=== PATIENT | female | born 1985 | race Caucasian/White ===

== ENCOUNTER 2024-10-12 23:01 | Inpatient (IN) | payer OTHER, SELFPAY ==
--- NOTE | ~2024-10-12 | CT_ITS ---
CLINICAL HISTORY: L eye septal preseptal cellulitis, swelling, pus CT orbits with contrast Comparison: None provided Findings: No acute fractures. Globes and retro-orbital contents unremarkable. There is left orbital preseptal subcutaneous edema, possible cellulitis. Correlate clinically. Visualized intracranial contents are within normal limits. Paranasal sinuses and mastoid air cells clear. No foreign bodies. IMPRESSION: Left orbital preseptal subcutaneous edema. Correlate for cellulitis. This document has been electronically signed by: Markus Howard MD on 10/13/2024 07:44:56
[2024-10-12 23:39] VITALS: BP 151/73; PULSE 94; RESP 18; TEMP 36.9; O2SAT 97; BMI 51.4
[2024-10-12 23:51] LABS: Hematocrit 38.7 % (37.0-47.0); Hemoglobin 12.5 g/dl (12.0-16.0); Mean Corpuscular HGB Conc 32.3 g/dl (31.0-35.0); Mean Corpuscular Hemoglobin 24.7 pg (27.0-33.0); Mean Corpuscular Volume 76.3 fL (80.0-98.0); NRBC Abs Auto 0.000 X10*3/uL (0.0-0.012); NRBC Pct Auto 0.0 /100WBC (0.0-0.2); Platelet Count 420 X10*3/uL (160-400); Red Blood Count 5.07 X10*6/uL (4.20-5.50); White Blood Count 21.8 X10*3/uL (4.8-10.8)
[2024-10-13] VITALS (8 sets, daily range): BP systolic 132–177; BP diastolic 69–99; PULSE 83–93; RESP 14–18; TEMP 36.2–36.9; O2SAT 96–100; BMI 53.6
[2024-10-13 00:10] LABS: Alanine Aminotransferase 7 U/L (0-31); Albumin Level 4.2 g/dL (3.5-5.0); Alkaline Phosphatase 147 U/L (39-117); Anion Gap 14 (12-20); Aspartate Amino Transferase 15 U/L (5-31); Blood Urea Nitrogen 13 mg/dL (9-16); Calcium 9.5 mg/dL (8.4-10.2); Carbon Dioxide 25 mmol/L (22-29); Chloride 106 mmol/L (96-108); Creatinine Clr Calc Pharmacy 130.5; Estimated Glomerular Filt Rate > 60; Potassium 3.6 mmol/L (3.3-5.1); Sodium 141 mmol/L (135-145); Total Protein 7.5 g/dL (6.5-8.0)
--- NOTE | 2024-10-13 03:57 | ED_ITS ---
HPI - General Adult General Chief complaint: Skin/Abscess/Foreign Body Stated complaint: body & face rash Time Seen by Provider: 10/13/24 03:02 Source: patient Mode of arrival: ambulatory Limitations: no limitations History of Present Illness ED Provider: Dr. Ayana Herrera HPI narrative: Patient comes to the emergency room complaining of 2 days of rash under her breasts and axilla. Patient states that now over last 24 hours, she has developed an infection in her left eye. Patient states that it is swollen shut and can open it. Patient states that she continuously has skin lesions secondary to her medical history of Behcet's. Patient denies any chest pain or shortness of breath. Patient denies fever chills. Related Data Home Medications ?Medication ?Instructions ?Recorded ?Confirmed apremilast 30 mg tablet (Otezla) 30 mg PO BID 06/10/22 06/10/22 diazepam 5 mg tablet 5 mg PO BID PRN 06/10/2208/27 escitalopram oxalate 20 mg tablet 20 mg PO DAILY 06/1006/10/22 fluticasone propionate 50 1 spray intranasal BID 06/1006/10/22 mcg/actuation nasal spray,suspension gabapentin 300 mg capsule 300 mg PO QID 06/10/2206/10 hydroxyzine HCl 50 mg tablet 50 mg PO BID 06/10/2208/27 levothyroxine 50 mcg tablet 50 mcg PO DAILY 06/10/22 0 06/10/22 loratadine 10 mg tablet 10 mg PO DAILY 06/10/2208/27 medroxyprogesterone 150 mg/mL 150 mg IM [id number] 06/1006/10/22 intramuscular suspension rimegepant 75 mg disintegrating 75 mg PO ONCE PRN 08/2706/10/22 tablet (Nurtec ODT) sumatriptan succinate 100 mg tablet 100 mg PO Q2-4H CO N 06/10/22 06/10/22 tizanidine 4 mg tablet 4 mg PO BID PRN 06/10/2208/27 Allergies Allergy/AdvReac Type Severity Reaction Status Date / Time lactose (LACTOSE) Allergy Severe ANAPHYLAXIS Unverified 10/12/24 23:41 Penicillins (PENICILLINS) Allergy Severe ANAPYLAXIX Unverified 10/12/24 23:41 tramadol (TRAMADOL) Allergy Severe ANAPHYLAXIS Unverified 10/12/24 23:41 cephalexin (Keflex) Allergy Unknown Difficulty Verified 10/12/24 23:41 Breathing nystatin (NYSTATIN) Allergy Unknown DIFFICULTY Unverified 10/12/24 23:41 BREATHING penicillin G Allergy Unknown Difficulty Verified 10/12/24 23:41 Breathing sulfamethoxazole (From Allergy Unknown RASH Unverified 10/12/24 23:41 BACTRIM) DIFFICULTY BREATHING trimethoprim (From BACTRIM) Allergy Unknown RASH Unverified 10/12/24 23:41 DIFFICULTY BREATHING Review of Systems 2 Review of Systems: Constitutional : No Weight loss, No Fever, No Chills, No Night Sweats, No Fatigue, No Malaise ENT/Mouth : No Hearing loss, No Ear Pain, No Nasal Congestion, No Sinus Pain, No Hoarseness, No sore throat, No Rhinorrhea, No Swallowing Difficulty Eyes: Complaining of pain in the periorbital region, pus drainage from the eye, unable to open the eye due to pain Cardiovascular : No Chest Pain, No SOB, No Dyspnea on Exertion, No Orthopnea, No Edema, No Palpitations Respiratory : No Cough, No Sputum, No Wheezing, No Smoke Exposure, No Dyspnea Gastrointestinal : No Nausea, No Vomiting, No Diarrhea, No Constipation, No abdominal Pain, No Hematochezia, No Melena Genitourinary : no irregular bleeding, No Dysuria, No Urinary Frequency, No Hematuria, No Urinary Incontinence, No Urgency, No Flank Pain, No Urinary Flow Changes, No Hesitancy Musculoskeletal : No joint pain, No Myalgias, No Joint Swelling Skin : Complaining of a fungal infection under the breast armpits and abdominal folds Neuro : No Weakness, No Numbness, No Paresthesias, No Loss of Consciousness, No Dizziness, No Headache Psych : No Anxiety/Panic, No Depression, No SI/HI/AH/VH, No Social Issues, Heme/Lymph: No Bruising, No Bleeding,No Lymphadenopathy Endocrine : No Polyuria, No Polydipsia, No Temperature Intolerance [facility] Past Medical History Medical History Migraine Hypothyroidism Behcet's disease Hyperlipidemia Family History Family History (Updated 06/10/22 @ 10:21 by Skylar Billy, RN) Mother Diabetes Father CAD (coronary artery disease) Maternal Grandmother Diabetes Ovarian cancer Paternal Grandfather CAD (coronary artery disease) Maternal Aunt Ovarian cancer Social History Social History (Updated 06/10/22 @ 10:19 by Skylar Cervantes RN) Alcohol intake: never Patient Tobacco Use Status: Former Tobacco user Tobacco use type: Cigar Cigarette Packs Per Day: 0.25 e-Cigarette/Vaping Use: Never Used Advance Directives: No Advance Directives Information Provided: Yes Patient : No Physical Exam ED Exam Exam: Appearance: Alert. Oriented X3. No acute distress. Eyes: Pupils equal, round and reactive to light. Patient's left eye it had to be cleaned thoroughly because it was so stuck it was hard to open. Despite multiple times of cleaning the patient's left eye, keeps draining pus. Patient is able to move her eyes in all directions without significant pain in the actual eye. However, patient is tender to palpation around the eyelid and skin around the eye. Right eye pressure: 12.5 mmHg, left eye pressure, 13.5 mm Hg ENT: Pharynx normal. Neck: Normal inspection. Neck supple. No lymph nodes noted. No crepitus CVS: Normal heart rate and rhythm. Pulses normal. Normal S1 and S2 Respiratory: No respiratory distress. Breath sounds normal. No Wheezing. No rales Abdomen: Soft and nontender. No rigidity. No distention. Skin: Skin warm and dry. Normal skin color. Normal skin turgor. Extremities: No lower extremity edema. No Lacerations. No Rash Neuro: Oriented X 3. No motor deficit. No sensory deficit. Moving all extremities. No slurred speech. CN 2 through 12 grossly intact Psych: calm, cooperative, normal affect Vital Signs: Vital Signs - 24 hr 10/12/24 23:39 10/13/24 04:48 10/13/24 06:34 Temperature 98.5 F 98.2 F 98.3 F Pulse Rate 94 85 90 Respiratory Rate 18 16 18 Blood Pressure 151/73 H 150/79 H 169/99 H Pulse Oximetry 97 100 97 Oxygen Delivery Method Room Air Room Air Room Air BMI result Body Mass Index 51.4 Course Course Course Narrative: Patient is allergic to nystatin, patient was given clotrimazole Given the extent of the patient's eye infection and purulence, patient was given IV vancomycin. Patient is allergic to penicillins, cephalosporins. At this time, patient is not septic, so we will start with IV vanco. Patient also receiving IV fluids. We will obtain a CT scan of the orbits especially to visualize if there is orbital cellulitis. Medications Administered Discontinued Medications Generic Name Dose Route Start Last Admin Trade Name Freq PRN Reason Stop Dose Admin Clotrimazole 1 appl 10/13/24 03:43 10/13/24 06:07 Clotrimazole 1 % Cream 15 Gm Tube TOPICAL 10/13/24 03:44 Not Given ONCE ONE Protocol Erythromycin 1 cm 10/13/24 05:39 10/13/24 06:08 Erythromycin Base 0.5% Oph Oin 1 Gm Tube EYE-LEFT 10/13/24 05:40 1 cm ONCE ONE Administration Vancomycin HCl 2,000 mg in 500 mls @ 250 mls/hr 10/13/24 05:39 10/13/24 06:08 Vancomycin/Ns IV 10/13/24 07:38 250 mls/hr ONCE ONE Administration Sodium Chloride 1,000 mls @ 999 mls/hr 10/13/24 05:44 10/13/24 06:08 Ns IVCONT 10/13/24 06:44 999 mls/hr .Q1H1M ONE Administration Iohexol 85 ml 10/13/24 05:42 10/13/24 05:43 Iohexol 350 Mg/Ml 100 Ml Infus..Btl IV 10/13/24 05:43 85 ml ONCE ONE Administration Medical Decision Making Medical Decision Making [facility] Narrative: Patient's white blood cell count 21.8. According to the patient, this is her baseline. However, we do not have any previous labs for comparison. Patient's vitals stable, lactic acid normal. Sepsis is not suspected. Patient was given vancomycin, IV fluids. Patient has several allergies to multiple antibiotics. CT scan of the orbits show received in cellulitis. I discussed the patient with the medicine team, patient to be admitted Differential Diagnosis Differential Diagnoses: The differential diagnosis associated with the presentation includes (Septal cellulitis, preseptal cellulitis, uveitis, glaucoma) Admission/Observation Consideration of admission/observation: Escalation of care including admission/observation considered Consult Healthcare Provider Management of the patient was discussed with: Hospitalist Lab Data [facility] Lab Attestation statement: I reviewed the patient's lab results. 10/12/24 23:47 10/12/24 23:47 Labs: Lab Results 10/12/24 10/13/24 Range/Units 23:47 04:10 WBC 21.8 H (4.8-10.8) X10*3/uL RBC 5.07 (4.20-5.50) X10*6/uL Hgb 12.5 (12.0-16.0) g/dl Hct 38.7 (37.0-47.0) % MCV 76.3 L (80.0-98.0) fL MCH 24.7 L (27.0-33.0) pg MCHC 32.3 (31.0-35.0) g/dl RDW 14.2 (11.0-16.0) % Plt Count 420 H (160-400) X10*3/uL MPV 9.3 L (9.4-12.3) fL Absolute Nucleated RBC 0.000 (0.0-0.012) X10*3/uL Nucleated RBC % (auto) 0.0 (0.0-0.2) /100WBC Sodium 141 (135-145) mmol/L Potassium 3.6 (3.3-5.1) mmol/L Chloride 106 (96-108) mmol/L Carbon Dioxide 25 (22-29) mmol/L Anion Gap 14 (12-20) BUN 13 (9-16) mg/dL Creatinine 0.82 (0.5-1.4) mg/dL Estim Creat Clear Calc 130.5 Estimated GFR > 60 Random Glucose 116 H (60-115) mg/dL Lactic Acid 0.9 (0.5-2.0) mmol/L Calcium 9.5 (8.4-10.2) mg/dL Total Bilirubin 0.5 (0.0-1.0) mg/dL AST 15 (5-31) U/L ALT 7 (0-31) U/L Alkaline Phosphatase 147 H (39-117) U/L Total Protein 7.5 (6.5-8.0) g/dL Albumin 4.2 (3.5-5.0) g/dL Independent Interpretation I performed an independent interpretation of an: CT Scan Radiology Impression Discussion of test interpretation with radiology: I have reviewed the radiologist's reading. Radiologist Impression: No acute fractures. Globes and retro-orbital contents unremarkable. There is left orbital preseptal subcutaneous edema, possible cellulitis. Correlate clinically. Visualized intracranial contents are within normal limits. Paranasal sinuses and mastoid air cells clear. No foreign bodies. IMPRESSION: Left orbital preseptal subcutaneous edema. Correlate for cellulitis Critical Care Time Critical Care Time Critical Care Time: Yes Total Critical Care Time: 70 Attestation: I have personally provided critical care time. Time includes review of lab data, radiology results, discussion with consultants, and monitoring for potential decompensation. Intervention performed as documented. Discharge Plan Discharge Clinical Impression: Cellulitis, Candidiasis Patient Disposition: Admitted As Inpatient Print Language: Portuguese
--- NOTE | 2024-10-13 04:51 | PC.NURSE ---
Lactic acid and 2 sets of BC drawn and sent to lab for processing.
[2024-10-13] MEDS: iohexoL 350 MG/ML 100 ML INFUS..BTL 85 ML IV (05:43)
[2024-10-13] MEDS: Erythromycin Base 0.5% Oph Oin 1 GM TUBE 1 CM EYE-LEFT ×5 (06:08→19:53)
[2024-10-13] MEDS: vancomycin/NS 2,000 MG/500 ML PLAST..BAG 250 MG IV (06:08)
--- NOTE | 2024-10-13 08:57 | PM.IMHP ---
History of Present Illness Date of Service: 10/13/24 Attending physician on admission: Talia Ling Chief Complaint: left eye drainage This is a 38-year-old female with history Behcet's disease who presents to the emergency department with left eye discomfort. She reports redness and discomfort in her left eye over past 2 days with increasing purulent drainage. She also reports skin rash under her breasts and in her armpits although she said the this is almost always present. She has a history of Behcet disease reports that she regularly has skin lesions for this reason. In the emergency department she was noted to have large amount of purulent drainage and crusting in her left eye. Eye pressure normal in both eyes. She is able to move her eye in all directions and denies pain in her eye at this time, just reports frustration at the drainage and crusting that is making it difficult to keep her eye open. Lab work significant for leukocytosis of 21,000. Patient underwent orbital CT scan with IV contrast which showed retro orbital contents and globes unremarkable, showed left orbital preseptal subcutaneous edema, correlate for cellulitis. Patient received a dose of IV vancomycin and admission was requested for further management of preseptal cellulitis. Review of Systems Review of Systems: Yes all other systems are reviewed and are negative Constitutional: Constitutional: Denies chills and Denies fever(s) Cardiovascular: Cardiovascular: Denies chest pain and Denies palpitations Gastrointestinal: Gastrointestinal: Denies abdominal pain, Denies diarrhea, Denies nausea and Denies vomiting Endocrine: Endocrine: Denies palpitations [facility] Medical History Migraine Hypothyroidism Behcet's disease Hyperlipidemia Family History Mother Diabetes Father CAD (coronary artery disease) Maternal Grandmother Diabetes Ovarian cancer Paternal Grandfather CAD (coronary artery disease) Maternal Aunt Ovarian cancer Social History Alcohol intake: never Patient Tobacco Use Status: Former Tobacco user Tobacco use type: Cigar Cigarette Packs Per Day: 0.25 e-Cigarette/Vaping Use: Never Used Advance Directives: No Advance Directives Information Provided: Yes Patient : No Meds Allergies Allergy/AdvReac Type Severity Reaction Status Date / Time lactose (LACTOSE) Allergy Severe ANAPHYLAXIS Unverified 10/12/24 23:41 Penicillins (PENICILLINS) Allergy Severe ANAPYLAXIX Unverified 10/12/24 23:41 tramadol (TRAMADOL) Allergy Severe ANAPHYLAXIS Unverified 10/12/24 23:41 cephalexin (Keflex) Allergy Unknown Difficulty Verified 10/12/24 23:41 Breathing nystatin (NYSTATIN) Allergy Unknown DIFFICULTY Unverified 10/12/24 23:41 BREATHING penicillin G Allergy Unknown Difficulty Verified 10/12/24 23:41 Breathing sulfamethoxazole (From Allergy Unknown RASH Unverified 10/12/24 23:41 BACTRIM) DIFFICULTY BREATHING trimethoprim (From BACTRIM) Allergy Unknown RASH Unverified 10/12/24 23:41 DIFFICULTY BREATHING Active Medications: Current Medications Acetaminophen (Acetaminophen 325 Mg Tablet) 650 mg PO Q6H PRN PRN Reason: Pain, Mild 1-3,fever,headache Calcium Carbonate (Calcium Carbonate 750 Mg Tab.Chew) 750 mg PO Q4H PRN PRN Reason: Heartburn Enoxaparin Sodium (Enoxaparin Sodium 40 Mg/0.4 Ml Syringe) 40 mg SUBCUT Q24H [facility] Erythromycin (Erythromycin Base 0.5% Oph Oin 1 Gm Tube) 1 cm EYE-LEFT QID [facility] Levofloxacin (Levaquin) 750 mg in 150 mls @ 100 mls/hr IV Q24H [facility] Magnesium Hydroxide (Milk Of Magnesia 30 Ml Oral.Susp) 30 ml PO DAILY PRN PRN Reason: Constipation Melatonin (Melatonin 3 Mg Tablet) 6 mg PO BEDTIME PRN PRN Reason: Insomnia Pharmacy Consult (Consult Rx Vancomycin Dosing) 1 each MISCELLANE DAILY PRN PRN Reason: Consult order Sodium Chloride (0.9 % Sodium Chloride Flush 3 Ml Syringe) 3 ml IVFLUSH QSHIFT [facility] Home Medications ?Medication ?Instructions ?Recorded ?Confirmed ?Last Taken ?Type escitalopram oxalate 20 mg tablet 20 mg PO BEDTIME 06/10/22 10/13/24 Unknown History gabapentin 300 mg capsule 300 mg PO QID 06/10/22 10/13/24 Unknown History hydroxyzine HCl 50 mg tablet 50 mg PO BID PRN Anxiety 06/10/22 10/13/24 Unknown History loratadine 10 mg tablet 10 mg PO DAILY PRN ALLERGIES 06/10/22 10/13/24 Unknown History tizanidine 4 mg tablet 4 mg PO BID PRN Muscle Spasm 06/10/22 10/13/24 Unknown History atorvastatin 20 mg tablet 20 mg PO DAILY 10/13/24 10/13/24 Unknown History duloxetine 60 mg capsule,delayed 60 mg PO DAILY 10/13/24 10/13/24 Unknown History release esomeprazole magnesium 20 mg 20 mg PO DAILY PRN Acid Reflux 10/13/24 10/13/24 Unknown History capsule,delayed release indomethacin 25 mg capsule 50 mg PO BID PRN Pain (Scale Score 10/13/24 10/13/24 Unknown History 4-6) Physical Exam Vital Signs and Narrative: Vital Signs: Last Vital Signs Temp 98.3 F 10/13/24 06:34 Pulse 90 10/13/24 06:34 Resp 18 10/13/24 06:34 BP 169/99 H 10/13/24 06:34 Pulse Ox 97 10/13/24 06:34 O2 Del Method Room Air 10/13/24 06:34 BMI result Body Mass Index 51.4 Const: General: cooperative, alert and awake Nutritional Appearance: obese Orientation/consciousness: patient oriented x3 Eyes: Other: EOM: EOMs intact bilaterally Resp: Effort & Inspection: normal respiratory effort, able to speak in complete sentences, no respiratory distress and no use of accessory muscles GI: Inspection: No distended Palpation (GI): Soft to palpation Skin: Other: fungal rash b/l axilla and under b/l breasts Neuro: General: patient oriented x3 Results Labs 10/12/24 23:47 10/12/24 23:47 Labs: Laboratory Results - last 24 hr 10/12/24 10/13/24 23:47 04:10 MCV 76.3 L MCH 24.7 L MCHC 32.3 RDW 14.2 Plt Count 420 H MPV 9.3 L Absolute Nucleated RBC 0.000 Nucleated RBC % (auto) 0.0 Anion Gap 14 Estim Creat Clear Calc 130.5 Estimated GFR > 60 Random Glucose 116 H Lactic Acid 0.9 Calcium 9.5 Total Bilirubin 0.5 AST 15 ALT 7 Alkaline Phosphatase 147 H Total Protein 7.5 Albumin 4.2 Assessment and Plan (1) Candidiasis: Status: Acute (2) Preseptal cellulitis of left eye: Status: Acute Plan This is a 38 year old female with history of Behcet's disease, hypothyroidism, chronic back pain, migraines who presents to the emergency department with left eye purulent drainage and redness found to have preseptal cellulitis Preseptal cellulitis and conjunctivitis of left eye IV levofloxacin, vancomycin Erythromycin ointment blood cultures pending Fungal rash/intertrigo Documented allergy to the nystatin, will use topical clotrimazole Consider oral fluconazole if no improvement Elevated blood pressure Blood pressure elevated in emergency department No history of hypertension Monitor blood pressure closely. May need to be started on antihypertensive leukocytosis scanned in notes indication h/o chronic leukocytosis no recent baseline for comparison follow CBC Mood Continue baseline medications HLD continue statin Morbid obesity BMI 51.4 Weight loss encouraged DVT prophylaxis - early ambulation, mechanical devices Likely to require 2 midnight stay in the hospital for management of preseptal cellulitis requiring IV antibiotics Quality Stroke Does the patient have a stroke diagnosis?: No VTE Prior VTE?: No VTE Risk Level:: Medical - moderate - high VTE Device Contraindication: N/A - Device Ordered VTE Drug Contraindication: Treatment Not Indicated
--- NOTE | 2024-10-13 09:18 | PHA.MEDREC ---
Pharmacy Consult ? Medication Reconciliation Pharmacy has completed the medication reconciliation.Med rec complete, spoke with patient and compared pharmacy claim history. Patient is stating she takes some of her meds differently than prescribed directions. For example she states gabapentin is taken all together at night, duloxetine is only once daily, esomeprazole is prn
--- NOTE | 2024-10-13 11:52 | PC.NURSE ---
report called to THERESA Bowens in overflow
--- NOTE | 2024-10-13 13:09 | PC.NURSE ---
medication Pt states that she takes her gabapentin in 1 dose- 1200 mg nightly and does not take it every 4 hrs as ordered- pt asking for it to be changed. also asking for additional anxiety medication states the atarax isnt for anxiety its for her baseline rash/itchiness. Danyell Manrique has been notified via tiger text of both requests.
[2024-10-13] MEDS: 0.9 % Sodium Chloride Flush 3 ML SYRINGE IVFLUSH ×2 (14:46→19:52)
--- NOTE | 2024-10-13 17:53 | HO.SKINPHOTO ---
under left breast
--- NOTE | 2024-10-13 17:55 | HO.SKINPHOTO ---
abdominal folds, also pt. reports the same for the groin and perineal area.
[2024-10-14 03:12] VITALS: BP 166/74; PULSE 92; RESP 18; TEMP 36.4; O2SAT 97
[2024-10-14 07:27] VITALS: BP 145/94; PULSE 73; RESP 14; TEMP 36.8; O2SAT 96
--- NOTE | 2024-10-14 08:27 | HO.PM.IMPN ---
Subjective Subjective Date of Service: 10/14/24 Interval History: facial swelling/redness improving no fever Review of Systems Review of Systems: Yes all other systems are reviewed and are negative Physical Exam Vital Signs: Vital Signs: Last Vital Signs Temp 98.2 F 10/14/24 07:27 Pulse 73 10/14/24 07:27 Resp 14 10/14/24 07:27 BP 145/94 H 10/14/24 07:27 Pulse Ox 96 10/14/24 07:27 O2 Del Method Room Air 10/14/24 07:27 O2 Flow Rate 99 10/14/24 03:12 BMI result Body Mass Index 53.6 Gen: in no acute distress HEENT: L sclera red, moist mucus membranes, periorbital erythema and edema L eye but EOMI intact Neck: supple Lungs: clear to auscultation bilaterally Heart: regular rate and rhythm, no murmurs Abd: soft, non-tender, non-distended Ext: no edema Skin: warm/well-perfused Neuro: alert and oriented x3, no focal findings Psych: appropriate affect Objective Data Active Medications Acetaminophen (Acetaminophen 325 Mg Tablet) 650 mg PO Q6H PRN PRN Reason: Pain, Mild 1-3,fever,headache Atorvastatin Calcium (Atorvastatin Calcium 20 Mg Tablet) 20 mg PO DAILY [facility] Calcium Carbonate (Calcium Carbonate 750 Mg Tab.Chew) 750 mg PO Q4H PRN PRN Reason: Heartburn Clotrimazole (Clotrimazole 1 % Cream 15 Gm Tube) 1 appl TOPICAL BID [facility]; Protocol Last Admin: 10/13/24 20:05 Dose: Not Given Documented By: LYUDMILA Non-Admin Reason: Med Not Available Duloxetine HCl (Duloxetine Hcl 60 Mg Capsule.Dr) 60 mg PO DAILY [facility] Erythromycin (Erythromycin Base 0.5% Oph Oin 1 Gm Tube) 1 cm EYE-LEFT QID [facility] Last Admin: 10/13/24 19:53 Dose: 1 cm Documented By: LYUDMILA Escitalopram Oxalate (Escitalopram Oxalate 20 Mg Tablet) 20 mg PO BEDTIME [facility] Last Admin: 10/13/24 19:53 Dose: 20 mg Documented By: LYUDMILA Gabapentin (Gabapentin 300 Mg Capsule) 300 mg PO QID [facility] Last Admin: 10/13/24 19:53 Dose: 300 mg Documented By: LYUDMILA Hydroxyzine HCl (Hydroxyzine Hcl 50 Mg Tablet) 50 mg PO BID PRN PRN Reason: Anxiety Last Admin: 10/13/24 17:36 Dose: 50 mg Documented By: JOSE Levofloxacin (Levaquin) 750 mg in 150 mls @ 100 mls/hr IV Q24H [facility] Last Infusion: 10/13/24 11:22 Dose: Infused Documented By: JOVITA Vancomycin HCl 1,250 mg/ (Sodium Chloride) 250 mls @ 166.667 mls/hr IV Q12H [facility] Last Infusion: 10/14/24 07:34 Dose: 0 mls/hr Documented By: JOSE Magnesium Hydroxide (Milk Of Magnesia 30 Ml Oral.Susp) 30 ml PO DAILY PRN PRN Reason: Constipation Melatonin (Melatonin 3 Mg Tablet) 6 mg PO BEDTIME PRN PRN Reason: Insomnia Last Admin: 10/13/24 19:54 Dose: 6 mg Documented By: LYUDMILA Pharmacy Consult (Consult Rx Vancomycin Dosing) 1 each MISCELLANE DAILY PRN PRN Reason: Consult order Sodium Chloride (0.9 % Sodium Chloride Flush 3 Ml Syringe) 3 ml IVFLUSH QSHIFT [facility] Last Admin: 10/14/24 07:34 Dose: Not Given Documented By: JOSE Non-Admin Reason: No Access Tizanidine HCl (Tizanidine Hcl 4 Mg Tablet) 4 mg PO BID PRN PRN Reason: Muscle Spasm Labs 10/12/24 23:47 10/12/24 23:47 Microbiology Microbiology Results: Microbiology 10/13/24 04:10 Blood Culture - Preliminary Blood - Venous No growth after 24 hours. 10/13/24 04:10 Blood Culture - Preliminary Blood - Venous No growth after 24 hours. Assessment and Plan (1) Preseptal cellulitis of left eye: Status: Acute (2) Candidiasis: Status: Acute Plan d2, 38yo F with Behcet's disease, hypothyroidism, chronic back pain, migraines presenting with L eye purulent drainage + redness, admitted for preseptal cellulitis preseptal cellulitis - follow BCx + WBC count, continue levofloxacin + vancomycin + erythromycin ointment 10/13- intertrigo - clotrimazole HLD - statin morbid obesity - diet/exercise counseling mood disorder - escitalopram, hydroxyzine chronic pain - duloxetine, gabapentin, tizanidine VTE ppx - SCDs dispo - eventual home In my clinical judgment, the patient requires continued inpatient hospitalization for the following reasons: IV ABX Total time managing care of this patient today: 35 minutes. Quality Stroke Does the patient have a stroke diagnosis?: No VTE Prior VTE?: No VTE Risk Level:: Medical - moderate - high VTE Device Contraindication: N/A - Device Ordered VTE Drug Contraindication: Treatment Not Indicated
[2024-10-14] MEDS: Erythromycin Base 0.5% Oph Oin 1 GM TUBE 1 CM EYE-LEFT ×4 (08:58→21:28)
--- NOTE | 2024-10-14 09:57 | MHC.CM.PN ---
PT LIVES WITH AUNT PT IS INDEPENDNT PT HAS A RIDE HOME MARINA BARNES[facility] PT STATES HER AND HER AUNT DO NOT GET ALONG ?CARE TEAM DC PLAN HOME?OUPT COUNSELING
[2024-10-14 10:33] LABS: Hematocrit 38.7 % (37.0-47.0); Hemoglobin 12.3 g/dl (12.0-16.0); Mean Corpuscular HGB Conc 31.8 g/dl (31.0-35.0); Mean Corpuscular Hemoglobin 24.4 pg (27.0-33.0); Mean Corpuscular Volume 76.6 fL (80.0-98.0); NRBC Abs Auto 0.000 X10*3/uL (0.0-0.012); NRBC Pct Auto 0.0 /100WBC (0.0-0.2); Platelet Count 399 X10*3/uL (160-400); Red Blood Count 5.05 X10*6/uL (4.20-5.50); White Blood Count 16.1 X10*3/uL (4.8-10.8)
[2024-10-14 10:50] LABS: Creatinine Clr Calc Pharmacy 142.6; Estimated Glomerular Filt Rate > 60
[2024-10-14] MEDS: Clotrimazole 1 % Cream 15 GM TUBE 1 APPL TOPICAL ×2 (12:39→21:29)
[2024-10-14 15:19] VITALS: BP 145/82; PULSE 89; RESP 14; TEMP 36.6; O2SAT 96
[2024-10-14] MEDS: 0.9 % Sodium Chloride Flush 3 ML SYRINGE IVFLUSH ×2 (15:21→21:29)
[2024-10-14 19:41] VITALS: BP 122/72; PULSE 83; RESP 18; TEMP 36.3; O2SAT 96
[2024-10-15 03:28] VITALS: BP 125/73; PULSE 80; RESP 18; TEMP 36.1; O2SAT 98
[2024-10-15 06:38] LABS: Creatinine Clr Calc Pharmacy 142.6; Estimated Glomerular Filt Rate > 60
--- NOTE | 2024-10-15 07:12 | P.PNIM_ITS ---
Subjective Subjective Date of Service: 10/15/24 Interval History: redness/swelling slowly improving, no visual deficit Review of Systems Review of Systems: Yes all other systems are reviewed and are negative Physical Exam 2 Vital Signs: Vital Signs: Last Vital Signs Temp 97.0 F 10/15/24 03:28 Pulse 80 10/15/24 03:28 Resp 18 10/15/24 03:28 BP 125/73 10/15/24 03:28 Pulse Ox 98 10/15/24 03:28 O2 Del Method Room Air 10/15/24 03:28 O2 Flow Rate 99 10/14/24 03:12 BMI result Body Mass Index 53.6 Gen: in no acute distress HEENT: L sclera red, moist mucus membranes, periorbital erythema and edema L eye but EOMI intact Neck: supple Lungs: clear to auscultation bilaterally Heart: regular rate and rhythm, no murmurs Abd: soft, non-tender, non-distended Ext: no edema Skin: warm/well-perfused Neuro: alert and oriented x3, no focal findings Psych: appropriate affect Objective Data Active Medications Acetaminophen (Acetaminophen 325 Mg Tablet) 650 mg PO Q6H PRN PRN Reason: Pain, Mild 1-3,fever,headache Albuterol/Ipratropium (Albuterol/Iprat 2.5/0.5mg 3 Ml Ampul.Neb) 3 ml INHALE RQ4H WHILE AWAKE PRN PRN Reason: shortness of breath/wheeze Atorvastatin Calcium (Atorvastatin Calcium 20 Mg Tablet) 20 mg PO DAILY [facility] Last Admin: 10/14/24 08:58 Dose: 20 mg Documented By: JOSE Calcium Carbonate (Calcium Carbonate 750 Mg Tab.Chew) 750 mg PO Q4H PRN PRN Reason: Heartburn Clotrimazole (Clotrimazole 1 % Cream 15 Gm Tube) 1 appl TOPICAL BID [facility]; Protocol Last Admin: 10/14/24 21:29 Dose: 1 appl Documented By: WAYNE Duloxetine HCl (Duloxetine Hcl 60 Mg Capsule.Dr) 60 mg PO DAILY [facility] Last Admin: 10/14/24 08:58 Dose: 60 mg Documented By: JOSE Erythromycin (Erythromycin Base 0.5% Oph Oin 1 Gm Tube) 1 cm EYE-LEFT QID [facility] Last Admin: 10/14/24 21:28 Dose: 1 cm Documented By: WAYNE Escitalopram Oxalate (Escitalopram Oxalate 20 Mg Tablet) 20 mg PO BEDTIME [facility] Last Admin: 10/14/24 21:28 Dose: 20 mg Documented By: WAYNE Gabapentin (Gabapentin 300 Mg Capsule) 300 mg PO QID [facility] Last Admin: 10/14/24 21:28 Dose: 300 mg Documented By: WAYNE Hydroxyzine HCl (Hydroxyzine Hcl 50 Mg Tablet) 50 mg PO BID PRN PRN Reason: Anxiety Last Admin: 10/14/24 12:39 Dose: 50 mg Documented By: JOSE Levofloxacin (Levaquin) 750 mg in 150 mls @ 100 mls/hr IV Q24H [facility] Last Infusion: 10/14/24 11:32 Dose: Infused Documented By: JOSE Vancomycin HCl 1,250 mg/ (Sodium Chloride) 250 mls @ 166.667 mls/hr IV Q12H [facility] Last Admin: 10/15/24 05:48 Dose: 166.67 mls/hr Documented By: WAYNE Magnesium Hydroxide (Milk Of Magnesia 30 Ml Oral.Susp) 30 ml PO DAILY PRN PRN Reason: Constipation Melatonin (Melatonin 3 Mg Tablet) 6 mg PO BEDTIME PRN PRN Reason: Insomnia Last Admin: 10/14/24 21:45 Dose: 6 mg Documented By: WAYNE Pharmacy Consult (Consult Rx Vancomycin Dosing) 1 each MISCELLANE DAILY PRN PRN Reason: Consult order Sodium Chloride (0.9 % Sodium Chloride Flush 3 Ml Syringe) 3 ml IVFLUSH QSHIFT [facility] Last Admin: 10/14/24 21:29 Dose: 3 ml Documented By: WAYNE Tizanidine HCl (Tizanidine Hcl 4 Mg Tablet) 4 mg PO BID PRN PRN Reason: Muscle Spasm Labs 10/14/24 10:27 10/15/24 05:38 Labs: Laboratory Results - last 24 hr 10/14/24 10/14/24 10/14/24 09:53 10:27 16:13 MCV 76.6 L MCH 24.4 L MCHC 31.8 RDW 14.1 Plt Count 399 MPV 9.6 Absolute Nucleated RBC 0.000 Nucleated RBC % (auto) 0.0 Hold Purple Top Estim Creat Clear Calc 142.6 Estimated GFR > 60 C-Reactive Protein 4.59 H Random Vancomycin 14.3 L 10/15/24 05:38 MCV MCH MCHC RDW Plt Count MPV Absolute Nucleated RBC Nucleated RBC % (auto) Hold Purple Top SEE NOTE Estim Creat Clear Calc 142.6 Estimated GFR > 60 C-Reactive Protein Random Vancomycin Microbiology Microbiology Results: Microbiology 10/13/24 04:10 Blood Culture - Preliminary Blood - Venous No growth after 48 hours. 10/13/24 04:10 Blood Culture - Preliminary Blood - Venous No growth after 48 hours. Assessment and Plan (1) Preseptal cellulitis of left eye: Status: Acute (2) Candidiasis: Status: Acute Plan d3, 38yo F with Behcet's disease, hypothyroidism, chronic back pain, migraines presenting with L eye purulent drainage + redness, admitted for preseptal cellulitis preseptal cellulitis - follow BCx + WBC count, continue levofloxacin + vancomycin + erythromycin ointment 10/13-, ID consult re outpt ABX intertrigo - clotrimazole HLD - statin morbid obesity - diet/exercise counseling mood disorder - escitalopram, hydroxyzine chronic pain - duloxetine, gabapentin, tizanidine VTE ppx - SCDs dispo - eventual home In my clinical judgment, the patient requires continued inpatient hospitalization for the following reasons: IV ABX Total time managing care of this patient today: 35 minutes. Quality Stroke Does the patient have a stroke diagnosis?: No VTE Prior VTE?: No VTE Risk Level:: Medical - moderate - high VTE Device Contraindication: N/A - Device Ordered VTE Drug Contraindication: Treatment Not Indicated
[2024-10-15 07:29] VITALS: BP 124/62; PULSE 87; RESP 18; TEMP 36.2; O2SAT 95
[2024-10-15] MEDS: Erythromycin Base 0.5% Oph Oin 1 GM TUBE 1 CM EYE-LEFT ×2 (08:37→13:23)
[2024-10-15] MEDS: Clotrimazole 1 % Cream 15 GM TUBE 1 APPL TOPICAL (08:39)
--- NOTE | 2024-10-15 12:10 | MHC.CM.PN ---
Addendum entered by Sheri Jiménez RN 10/15/24 14:02: Patient medically cleared for dc home self care via private transport. Original Note: Per MD rounds patient not medically cleared for dc, awaiting ID consult, anticipate home self care tomorrow. CM will continue to follow.
[2024-10-15] MEDS: Acyclovir 5 % Oint 15 GM TUBE TOPICAL (13:23)
--- NOTE | 2024-10-15 13:48 | P.DS_ITS ---
DS: Providers Provider Date of Service: 10/15/24 Date of admission: 10/13/24 08:32 Date of discharge: 10/15/24 Primary care physician: Unknown Physician Consults: 10/13/24 17:47 Consult to Wound Care Routine Reason for consultation: scattered skin excoriation. Has provider been notified: Yes 10/15/24 07:11 Consult to Infectious Diseases Routine Consulting Provider: [facility] Reason for consultation: prespetal cellulisit DS: Diagnosis Discharge Diagnosis (1) Preseptal cellulitis of left eye: Status: Acute (2) Candidiasis: Status: Acute (3) Cold sore: Status: Acute (4) Behcet's disease: Status: Acute (5) Conjunctivitis: Status: Acute (6) Morbid obesity: Status: Acute DS: Summary Hospital Course Hospital Course: From the history and physical by the admitting hospitalist, RG Manrique, 10/13/24: This is a 38-year-old female with history Behcet's disease who presents to the emergency department with left eye discomfort. She reports redness and discomfort in her left eye over past 2 days with increasing purulent drainage. She also reports skin rash under her breasts and in her armpits although she said the this is almost always present. She has a history of Behcet disease reports that she regularly has skin lesions for this reason. In the emergency department she was noted to have large amount of purulent drai nage and crusting in her left eye. Eye pressure normal in both eyes. She is able to move her eye in all directions and denies pain in her eye at this time, just reports frustration at the drainage and crusting that is making it difficult to keep her eye open. Lab work significant for leukocytosis of 21,000. Patient underwent orbital CT scan with IV contrast which showed retro orbital contents and globes unremarkable, showed left orbital preseptal subcutaneous edema, correlate for cellulitis. Patient received a dose of IV vancomycin and admission was requested for further management of preseptal cellulitis. 38yo F with Behcet's disease, hypothyroidism, chronic back pain, migraines presenting with L eye purulent drainage + redness, admitted to the telemetry unit for preseptal cellulitis. She was treated with IV vancomycin and levofloxacin with symptomatic improvement. Leukocytosis also improve.d She was also given erythromycin ointment for component of conjuncitivits, clotrimazole for candidal intertrigo, and topical acyclovir for cold sore. Infectious Disease was consulted and recommended 5 days of clindamycin. She was discharged on clindamycin, erythromycin ointment, topical clotrimazole, and topical acyclovir. She should establish primary care and rheumatology care as soon as possible. Time Attestation Discharge Coordination Time (in mins): 35 Quality: Safe Use of Opioids Does Pt have an Active Cancer Diagnosis on the Problem List?: No Quality: Stroke Does the patient have a stroke diagnosis?: No Physical Exam Vital Signs: Vital Signs: Last Vital Signs Temp 97.2 F 10/15/24 07:29 Pulse 87 10/15/24 07:29 Resp 18 10/15/24 07:29 BP 124/62 10/15/24 07:29 Pulse Ox 95 10/15/24 07:29 O2 Del Method Room Air 10/15/24 07:29 O2 Flow Rate 99 10/14/24 03:12 BMI result Body Mass Index 53.6 Gen: in no acute distress HEENT: L sclera mildly injected but improved, moist mucus membranes, periorbital erythema and edema L eye improved from admission, EOMI intact, cold sore to L corner of lip Neck: supple Lungs: clear to auscultation bilaterally Heart: regular rate and rhythm, no murmurs Abd: soft, non-tender, non-distended Ext: no edema Skin: warm/well-perfused, erythema of skin folds in axila Neuro: alert and oriented x3, no focal findings Psych: appropriate affect DS: Data Data Completed and Pending Completed studies during hospitalization [Text1]: Laboratory Results WBC 16.1 X10*3/uL (4.8-10.8) H 10/14/24 10:27 RBC 5.05 X10*6/uL (4.20-5.50) 10/14/24 10:27 Hgb 12.3 g/dl (12.0-16.0) 10/14/24 10:27 Hct 38.7 % (37.0-47.0) 10/14/24 10: MCV 76.6 fL (80.0-98.0) L 10/14/24 10: MCH 24.4 pg (27.0-33.0) L 10/14/24 10:27 MCHC 31.8 g/dl (31.0-35.0) 10/14/24 10: RDW 14.1 % (11.0-16.0) 10/14/24 10:27 Plt Count 399 X10*3/uL (160-400) 10/14/24 10:27 MPV 9.6 fL (9.4-12.3) 10/14/24 10:27 Absolute Nucleated RBC 0.000 X10*3/uL (0.0-0.012) 10/14/24 10: Nucleated RBC % (auto) 0.0 /100WBC (0.0-0.2) 10/14/24 10:27 Hold Purple Top SEE NOTE 10/15/24 05:38 Sodium 141 mmol/L (135-145) 10/12/24 23:47 Potassium 3.6 mmol/L (3.3-5.1) 10/12/24 23:47 Chloride 106 mmol/L (96-108) 10/12/24 23:47 Carbon Dioxide 25 mmol/L (22-29) 10/12/24 23:47 Anion Gap 14 (12-20) 10/12/24 23:47 BUN 13 mg/dL (9-16) 10/12/24 23:47 Creatinine 0.77 mg/dL (0.5-1.4) 10/15/24 05:38 Estim Creat Clear Calc 142.6 10/15/24 05:38 Estimated GFR > 60 10/15/24 05:38 Random Glucose 116 mg/dL (60-115) H 10/12/24 23:47 Lactic Acid 0.9 mmol/L (0.5-2.0) 10/13/24 04:10 Calcium 9.5 mg/dL (8.4-10.2) 10/12/24 23:47 Total Bilirubin 0.5 mg/dL (0.0-1.0) 10/12/24 23:47 AST 15 U/L (5-31) 10/12/24 23:47 ALT 7 U/L (0-31) 10/12/24 23:47 Alkaline Phosphatase 147 U/L (39-117) H 10/12/24 23:47 C-Reactive Protein 4.59 mg/dL (< or = 0.50) H 10/14/24 09:53 Total Protein 7.5 g/dL (6.5-8.0) 10/12/24 23:47 Albumin 4.2 g/dL (3.5-5.0) 10/12/24 23:47 Random Vancomycin 14.3 mcg/mL (15-20) L 10/14/24 16:13 Discharge Plan Discharge Anticipated Discharge Date/Time: 10/15/24 13:41 Patient Disposition: Home, Self-Care Discharge Diagnosis: preseptal cellulitis of L eye cold sore candidiasis Referrals: [facility] [Provider Group, Internal Medicine] - 1 Week [facility] [Provider Group, Rheumatology] - 2 Weeks [facility] [Primary Care Provider, Medical] - 1 Week Discharge Medications: New erythromycin 5 mg/gram (0.5 %) Ointment 1 cm ophthalmic-Left QID Qty: 3.5 0RF acyclovir 5 % Ointment 1 appl topical 5XD Qty: 5 0RF clotrimazole 1 % Cream 1 appl topical BID Qty: 60 0RF Protocol: Apply to: Apply to: affected areas clindamycin HCl [Cleocin HCl] 300 mg capsule 300 mg PO QID Qty: 20 0RF Continued indomethacin 25 mg Capsule 50 mg PO BID PRN (Reason: Pain (Scale Score 4-6)) Rx Instructions: administer with food or milk duloxetine 60 mg Capsule,Delayed Release(Dr/Ec) 60 mg PO DAILY esomeprazole magnesium 20 mg Capsule,Delayed Release(Dr/Ec) 20 mg PO DAILY PRN (Reason: Acid Reflux) atorvastatin 20 mg Tablet 20 mg PO DAILY escitalopram oxalate 20 mg tablet 20 mg PO BEDTIME gabapentin 300 mg capsule 300 mg PO QID hydroxyzine HCl 50 mg tablet 50 mg PO BID PRN (Reason: Anxiety) loratadine 10 mg tablet 10 mg PO DAILY PRN (Reason: ALLERGIES) tizanidine 4 mg tablet 4 mg PO BID PRN (Reason: Muscle Spasm) Discharge Orders: Discharge Order (Routine); Ordered 10/15/24 Ordered By: Talia Ling Diet: Advance to usual diet Activity on Discharge: As tolerated Stand Alone Forms: Patient Portal Discharge page Print Language: Ukrainian Care Plan Goals: recovery from infection Health Concerns: preseptal cellulitis of L eye cold sore candidiasis Plan of Treatment: clindamycin 300 mg 4x a day for 5 days erythromycin ointment to L eye 4x a day for 5 days acyclovir ointment to L corner of mouth 5x a day for 5 days clotriomazole cream to fungal rash 2x a day until resolved establish primary care as soon as possible as well as rheumatology care. Return to the hospital if you experience recurrent or worsening symptoms. Assessment: See Discharge Summary.
== END 2024-10-15 15:18 | disposition home or self-care (01) | DRG 383 ==
LOC: HO.ED 10-13 08:01 → HO.EDOVER 10-13 08:39 → HO.S3 10-13 12:31
PROVIDERS: Admitting Provider Physician Assistant Medical; Emergency Provider Emergency Medicine; Visit Provider Family Medicine
DX: L03.213 Periorbital cellulitis (principal); M35.2 Behcet's disease; Z68.43 Body mass index [BMI] 50.0-59.9, adult; F17.210 Nicotine dependence, cigarettes, uncomplicated; B37.2 Candidiasis of skin and nail; B00.1 Herpesviral vesicular dermatitis; E03.9 Hypothyroidism, unspecified; E78.5 Hyperlipidemia, unspecified; H10.9 Unspecified conjunctivitis; R03.0 Elevated blood-pressure reading, without diagnosis of hypertension; G89.29 Other chronic pain; M54.9 Dorsalgia, unspecified; E66.01 Morbid (severe) obesity due to excess calories; Z71.6 Tobacco abuse counseling; Z79.890 Hormone replacement therapy; Z79.899 Other long term (current) drug therapy
CPT/HCPCS: 36415; 70481; 80053; 80202; 82565; 83605; 85027; 86140; 87040; 99221; 99285; J1956; J3373; J3374; Q9967

== ENCOUNTER → 2024-10-13 03:38 | Outpatient (BNV) | payer OTHER, SELFPAY | PROVIDERS: Emergency Provider Emergency Medicine; Visit Provider Specialist | DX: H05.222 Edema of left orbit (principal) | CPT/HCPCS: 70481 ==

== ENCOUNTER → 2024-10-13 08:32 | Outpatient (BNV) | payer OTHER, SELFPAY | PROVIDERS: Admitting Provider Physician Assistant Medical; Emergency Provider Emergency Medicine; Visit Provider Physician Assistant Medical | DX: L03.213 Periorbital cellulitis (principal); B37.9 Candidiasis, unspecified | CPT/HCPCS: 99223; 99232; 99239; 99499 ==